=== PATIENT | male | born 1980 | race Caucasian/White ===

== ENCOUNTER 2018-11-13 12:56 | Outpatient (CLI) | payer OTHER ==
[2013-10-25 20:18] VITALS: BP 108/68
--- NOTE | 2018-11-20 09:22 | Diagnostic Imaging Report ---
LEXI YOUNG [facility] [id number] [facility] [address] [place], [place]. [address] Report Submission Date: Nov 13, 2018 1:46:49 PM CDT Patient Study Name: ROBSON IBRAHIM Date: Nov 13, 2018 12:54:58 PM CDT Modality Type: DX Gender: M Description: CHEST 2VIEW : 80 Institution: [facility] Physician: LEXI YOUNG Examination: PA and lateral chest. History: Evaluate lung escobar. Comparison exam: None provided. Findings: PA and lateral views of the chest demonstrates a normal cardiac and mediastinal silhouette. No focal infiltrate. No blunting of the costophrenic margins. Osseous structures are appropriate for age. Impression: No acute pulmonary process. Electronically signed on Nov 13, 2018 1:46:49 PM CDT by: Sarabjit CARLOS
== END 2018-11-13 12:58 ==
LOC: RAD 12:56
PROVIDERS: ATTEND Family Medicine
DX: R63.4 Abnormal weight loss (principal)
CPT/HCPCS: 71046